=== PATIENT | male | born 1975 | race Caucasian/White ===

== ENCOUNTER 2022-12-05 14:16 | Inpatient (IN) | payer MEDICAID ==
[~2022-12-05] VITALS: Ht 170.2 cm; Wt 77.0 kg
[2022-12-05] VITALS (16 sets, daily range): BP systolic 121–150; BP diastolic 73–107
--- NOTE | 2022-12-05 14:47 | NUR ---
PT AMBULATES TO RM 2 FOR EVAL, NO ACUTE DISTRESS. MD AWARE AND VS STABLE.
[2022-12-05 15:17] LABS: BASO% 0.3 % (0-3); HEMATOCRIT 48.5 % (39.0-50.0); HEMOGLOBIN 16.4 g/dl (14.0-18.0); IMMATURE GRANULOCYTES 0.2 % (0.0-5.0); MEAN CELL VOLUME 100.6 fL CALC (80.0-100.0); MEAN CORPUSCULAR HGB CONC 33.8 g/dL CAL (32.0-36.0); MONO% 5.8 % (2-13); NEUT# 9.42 thou/uL (1.82-7.42); NEUT% 85.7 % (42-76); RED BLOOD COUNT 4.82 mill/uL (4.70-6.10)
[2022-12-05 15:27] LABS: ALBUMIN 4.9 g/dL (3.2-5.0); ALKALINE PHOSPHATASE 74 u/l (38-126); ANION GAP 12 (6-22 (CALC)); BUN 16 mg/dL (9-20); BUN/CREATININE RATIO 17 (12-20 (CALC)); CARBON DIOXIDE 24 mmol/l (22-30); CHLORIDE 107 mmol/l (95-108); CREATININE 0.9 mg/dL (0.7-1.3); GFR FOR AFR.AMER. > 60 ML/MIN (>=60 (CALC)); GFR OTHER RACES > 60 ML/MIN (>=60 (CALC)); LIPASE 23 u/l (23-300); POTASSIUM 3.8 mmol/l (3.5-5.1); SGOT/AST 48 u/l (17-59); SODIUM 139 mmol/l (137-146); TOTAL PROTEIN 8.5 g/dL (6.3-8.2)
--- NOTE | 2022-12-05 15:29 | NUR ---
IV ACCESS OBTAINED. PATIENT MEDICATED.
--- NOTE | 2022-12-05 16:14 | NUR ---
PATIENT MEDICATED WITH MORPHINE AFTER RETURN FROM RADIOLOGY.
--- NOTE | 2022-12-05 17:47 | NUR ---
DR. GALVEZ AT THE BEDSIDE TO DISCUSS THE PLAN OF CARE. PATIENT TO BE ADMITTED FOR SURGICAL SERVICES.
--- NOTE | 2022-12-05 17:47 | NUR ---
BLOOD CUTURES OBTAINED.
--- NOTE | 2022-12-05 17:54 | NUR ---
IV ABT'S (ZOSYN) GIVEN AT THIS TIME. PATIENT MEDICATED WITH MORPHINE 4 MG PRIOR TO NASAL GASTRIC TUBE INSERTION.
[2022-12-05 18:01] LABS: URINE BILIRUBIN - DIPSTICK NEGATIVE (NEGATIVE); URINE BLOOD DIPSTICK NEGATIVE (NEGATIVE); URINE COLOR YELLOW; URINE GLUCOSE - DIPSTICK NEGATIVE (NEGATIVE); URINE KETONE NEGATIVE (NEGATIVE); URINE LEUK ESTERASE NEGATIVE (NEGATIVE); URINE NITRITE - DIPSTICK NEGATIVE (Negative); URINE PROTEIN - DIPSTICK NEGATIVE (NEG-TRACE); URINE UROBILINOGEN - DIPSTICK 0.2 E.U./dL (0.2)
--- NOTE | 2022-12-05 18:28 | NUR ---
NASAL GASTRIC TUBE ADVANCED. GASTRIC CONTENT PRESENT.. VERIFIED PLACEMENT BY ASCULTATION. CHEST XRAY ORDERED SECIND CONFERMATION OF NG TUBE PLACEMENT. PATIENT DID EXTREMLY WELL.
--- NOTE | 2022-12-05 18:54 | NUR ---
VERBAL REPORT GIVEN TO RECIEVING NURSE ON MED SURGE/TELEMETRY. PORTABLE XRAY FOR CHEST TUBE PLACEMENT COMPLETED.PATIENT TAKEN TO THE FLOOR.
[2022-12-06] VITALS (7 sets, daily range): BP systolic 106–147; BP diastolic 67–94
--- NOTE | 2022-12-06 | NUR ---
RECEIVED REPORT FROM ED NURSE, PATIENT ARRIVED TO FLOOR AT 1916, PATIENT TRANSPORTED BY WHEELCHAIR, PATIENT IS AMBULATORY, NGT TUBE ON RT NARE HOOKED TO LOW INTERMITTENT SUCTION, IV SITE ON LAC G 20 PATENT FLUSHES WELL CONNECTED TO NS @ 100CC/HR, PATEINT ON TELEMETRY, ACTIVE BOWEL SOUNDS LBM 12/05, PATEINT KEPT ON NPO. ADMISSION ASSESSMENT COMPLETED, CALL LIGHT WITHIN REACH.
--- NOTE | 2022-12-06 04:03 | NUR ---
PATIENT RESTING IN BED, STILL ABDOMINAL PAIN MEDICATED EARLIER DILAUDID, PATIENT NPO AT THIS TIME, NGT ON LIS DRAINING DARK RED FLUID, CALL LIGHT IN REACH.
[2022-12-06 05:04] LABS: MEAN CELL VOLUME 101.9 fL CALC (80.0-100.0); MEAN CORPUSCULAR HGB 34.9 pG CALC (26.0-32.0); MEAN CORPUSCULAR HGB CONC 34.3 g/dL CAL (32.0-36.0); RED BLOOD COUNT 3.75 mill/uL (4.70-6.10)
[2022-12-06 05:14] LABS: HEMATOCRIT 38.2 % (39.0-50.0); HEMOGLOBIN 13.1 g/dl (14.0-18.0)
[2022-12-06 05:21] LABS: ALKALINE PHOSPHATASE 40 u/l (38-126); ANION GAP 8 (6-22 (CALC)); BUN 17 mg/dL (9-20); BUN/CREATININE RATIO 17 (12-20 (CALC)); CARBON DIOXIDE 25 mmol/l (22-30); CHLORIDE 109 mmol/l (95-108); GFR FOR AFR.AMER. > 60 ML/MIN (>=60 (CALC)); GFR OTHER RACES > 60 ML/MIN (>=60 (CALC)); MAGNESIUM 1.3 mg/dL (1.6-2.3); POTASSIUM 3.9 mmol/l (3.5-5.1); SGOT/AST 28 u/l (17-59); SODIUM 138 mmol/l (137-146)
[2022-12-06 05:30] LABS: ALBUMIN 3.4 g/dL (3.2-5.0); BILIRUBIN, TOTAL 0.5 mg/dL (0.2-1.3); TOTAL PROTEIN 5.6 g/dL (6.3-8.2)
--- NOTE | 2022-12-06 07:40 | NUR ---
PT RESTING IN BED. VOICED PAIN IN ABD AREA X4 QUADRANTS ASSESSMENT COMPLETED. REPOSTIONED/ ASSISTED TO BATHROOM. PT HAD DARK BROWN LOOSE/WATERY STOOL. OUTPUT FROM NG TUBE THIS MORNING 750CC. NG TUBE IN PLACE. TELE MONITOR IN PLACE. CONINTOUS MONITORING PER ED. FALL/SAFTEY PRECAUTION IN PLACE. CALL LIGHT WITHIN REACH.
--- NOTE | 2022-12-06 12:00 | NUR ---
PT RESTING IN BED WITH NG TUBE IN PLACE @ LOW INTERMIT SUCTION. PT STATES NO NEEDS AT THIS TIME. FALL/SAFTEY PRECAUTION IN PLACE. CALL LIGHT WITHIN REACH
--- NOTE | 2022-12-06 16:20 | NUR ---
PT TO CT VIA WC WITH SUPERVISOR PROP MAKING.
--- NOTE | 2022-12-06 17:42 | NUR ---
SPOKE WITH DR. VILLALTA, ORDERS RECEIVED FOR EXPLORATORY LAPAROTOMY. COST CLERK OR TEAM CALL IN INITIATED.
--- NOTE | 2022-12-06 17:42 | NUR ---
PT BACK FROM CT. BREATHING EVEN AND UNLABORED. STATES NO NEEDS AT THIS TIME. FALL/SAFTEY PRECAUTION IN PLACE. CALL LIGHT WITHIN REACH
--- NOTE | 2022-12-06 19:10 | NUR ---
RECEIVED REPORT FROM DAYSHIFT NURSE. PT IS LYING IN BED ON THE PHONE. PT AWARE OF OR COMING SOON. PT IS SCHEDULED FOR SURGEY AT 1930. PT ADVISED AND ACKNOWLEGED OF CHANGE OF NURSE FOR THE NIGHT. PT HAS NO COMPLAINTS OF PAIN AT THIS TIME. CALL LIGHT WITHIN REACH AND SAFTEY PRECAUTIONS IN PLACE.
--- NOTE | 2022-12-06 19:25 | NUR ---
OR STAFF TO BEDSIDE. PATIENT TRANSPORTED TO OR VIA STRETCHER.
--- NOTE | 2022-12-06 23:20 | NUR ---
Patient arrived via stretcher accompanied by OR staff. Patient alert and oriented, awake at this time. NG tube in place to R nare, clamped at this time, O2 at 3L. Dressing to abdomen CDI, Emil drain noted to have scant serosanguineous drainage. Patient able to transfer himself off stretcher into bed. Hall draining clear yellow urine to gravity, leg strap in place. Patient reoriented to room and call light system. Call light and bedside table within reach.
[2022-12-07] VITALS (10 sets, daily range): BP systolic 89–132; BP diastolic 62–93
--- NOTE | 2022-12-07 04:10 | NUR ---
PT IN BED SLEEPING AFTER SURGERY. PT SHOWS NO VISABLE SIGNS OF PAIN OR DISTRESS AT THE MOMENT. CALL LIGHT WITHIN REACH AND SAFETY PRECAUTIONS IN PLACE.
[2022-12-07 05:13] LABS: BASO% 0.3 % (0-3); EOS% 0.4 % (0-8); HEMATOCRIT 37.9 % (39.0-50.0); HEMOGLOBIN 12.7 g/dl (14.0-18.0); IMMATURE GRANULOCYTES 0.1 % (0.0-5.0); LYMPH% 11.3 % (15-41); MEAN CELL VOLUME 104.7 fL CALC (80.0-100.0); MEAN CORPUSCULAR HGB 35.1 pG CALC (26.0-32.0); MEAN CORPUSCULAR HGB CONC 33.5 g/dL CAL (32.0-36.0); MONO% 1.8 % (2-13); NEUT# 6.22 thou/uL (1.82-7.42); NEUT% 86.1 % (42-76); RED BLOOD COUNT 3.62 mill/uL (4.70-6.10); RED CELL DISTRI WIDTH 13.6 % (11.5-15.5)
[2022-12-07 05:36] LABS: ALBUMIN 2.9 g/dL (3.2-5.0); ALKALINE PHOSPHATASE 57 u/l (38-126); ANION GAP 8 (6-22 (CALC)); BILIRUBIN, TOTAL 0.3 mg/dL (0.2-1.3); BUN 24 mg/dL (9-20); BUN/CREATININE RATIO 20 (12-20 (CALC)); CARBON DIOXIDE 25 mmol/l (22-30); CHLORIDE 108 mmol/l (95-108); CREATININE 1.2 mg/dL (0.7-1.3); GFR FOR AFR.AMER. > 60 ML/MIN (>=60 (CALC)); GFR OTHER RACES > 60 ML/MIN (>=60 (CALC)); POTASSIUM 3.5 mmol/l (3.5-5.1); SGOT/AST 40 u/l (17-59); SODIUM 138 mmol/l (137-146); TOTAL PROTEIN 5.4 g/dL (6.3-8.2)
[2022-12-07 05:39] LABS: MAGNESIUM 2.7 mg/dL (1.6-2.3)
--- NOTE | 2022-12-07 08:12 | NUR ---
PT RESTING IN BED WITH NG TUBE IN PLACE. ASSESSMENT COMPLETE. PT EXPRESSESS FRUSTRATION/ANXIETY TOWARDS COLOSTOMY. CALMING VERBAL CUES GIVEN. TELE MONITOR IN PLACE, CONTINOUS MONITORING PER ED. [facility]. PT INIDCATED UNDERSTANDING. LEIGH IN PLACE, DRAINING URINE VIA GRAVITY. FALL/SAFTEY PRECAUTION IN PLACE. CALL LIGHT WITHIN REACH
--- NOTE | 2022-12-07 10:30 | NUR ---
LEIGH REOMVED. PT TOLERATED WELL. FALL/SAFTEY PRECAUTION IN PLACE. CALL LIGHT WITHIN REACH
--- NOTE | 2022-12-07 12:00 | NUR ---
PT DRESSING CHANGED/ OSTOMY TO THE LEFT ABD INTACT, CLEANED. PT TOLERATED WELL. EDUCATED PT ON COLOSTOMY CARE. PT INDICATED UNDERSTANDING. FALL/SAFTEY PRECAUTIO BERNARD PLACE. CALL LIGHT WITHIN REACH.
--- NOTE | 2022-12-07 16:00 | NUR ---
PT AMBULATING WITH ACTION NURSE TECH. PT ABLE TO AMBULAET VIA STANDY BY ASSIST. FALL/SAFTEY PRECAUTIONS IN PLACE.
--- NOTE | 2022-12-07 19:20 | NUR ---
Report received from Marco Garcia Rn.
--- NOTE | 2022-12-07 20:10 | NUR ---
PATIENT WALKING HALLWAYS, STATES HE HAS PAIN WHEN HE GETS OUT OF BED, BUT OTHERSWISE THE PAIN IS OKAY. PATIENT OBSERVED WALKING DOWN THE HALLWAYS, WAYNE FARR NOTED, GRIPPED SOCKS ON PATIENT.
--- NOTE | 2022-12-07 23:51 | NUR ---
ANTIBIOTIC AND TORADOL GIVEN AT THIS TIME. JACQUELINE DRAIN EMPTIED 20ML, DRESSING REMAINS CDI.
[2022-12-08] VITALS (7 sets, daily range): BP systolic 130–151; BP diastolic 77–93
--- NOTE | 2022-12-08 03:00 | NUR ---
PATIENT AMBULATED DOWN HALLWAYS, STEADY GAIT NOTED. GRIPPED SOCKS ON.
[2022-12-08 03:39] LABS: BASO% 0.3 % (0-3); EOS% 3.5 % (0-8); HEMATOCRIT 33.8 % (39.0-50.0); HEMOGLOBIN 11.1 g/dl (14.0-18.0); IMMATURE GRANULOCYTES 0.4 % (0.0-5.0); LYMPH% 9.4 % (15-41); MEAN CORPUSCULAR HGB 34.8 pG CALC (26.0-32.0); MEAN CORPUSCULAR HGB CONC 32.8 g/dL CAL (32.0-36.0); MONO% 1.8 % (2-13); NEUT# 8.01 thou/uL (1.82-7.42); NEUT% 84.6 % (42-76); RED BLOOD COUNT 3.19 mill/uL (4.70-6.10); RED CELL DISTRI WIDTH 13.6 % (11.5-15.5)
[2022-12-08 03:59] LABS: ALBUMIN 2.9 g/dL (3.2-5.0); ALKALINE PHOSPHATASE 56 u/l (38-126); ANION GAP 10 (6-22 (CALC)); BILIRUBIN, TOTAL 0.3 mg/dL (0.2-1.3); BUN 20 mg/dL (9-20); BUN/CREATININE RATIO 18 (12-20 (CALC)); CARBON DIOXIDE 21 mmol/l (22-30); CHLORIDE 112 mmol/l (95-108); CREATININE 1.1 mg/dL (0.7-1.3); GFR FOR AFR.AMER. > 60 ML/MIN (>=60 (CALC)); GFR OTHER RACES > 60 ML/MIN (>=60 (CALC)); POTASSIUM 3.5 mmol/l (3.5-5.1); SGOT/AST 32 u/l (17-59); SODIUM 140 mmol/l (137-146); TOTAL PROTEIN 5.4 g/dL (6.3-8.2)
--- NOTE | 2022-12-08 04:00 | NUR ---
ANTIBIOTIC AND TORADOL GIVEN AT THIS TIME. JACQUELINE DRAIN EMPTIED 20ML, DRESSING REMAINS CDI.
--- NOTE | 2022-12-08 07:00 | NUR ---
BEDSIDE SHIFT REPORT, PT AMBULATING IN HALLWAYS THEN SETTLED BACK IN ROOM ASKED, C/O ABD PAIN @ 5/10, IVF INFUSING, TELE MONITOR IN PLACE. JACQUELINE DRAIN IN PLACE TO ABD WITH PINK DRAINAGE, COLOSTOMY IN PLACE TO RIGHT ABD WITH GREEN LIQUID DRAINAGE. CALL REDD IN REACH AND BED LOCKED IN LOWEST POSITION.
--- NOTE | 2022-12-08 10:48 | NUR ---
STOMA DRESSING CHANGED AT THIS TIME, WAFER SOILED WITH LIQUID OUTPUT, WAFER REMOVED AND AREA AROUND STOMA CLEANED, SLIN PREPPED AND NEW WAFER REPLACED, DRESSING TO INCISION ALSO REPLACED, NO DRAINAGE ON OLD DRESSING AT THIS TIME.
--- NOTE | 2022-12-08 12:34 | NUR ---
PT C/O OF BLOATING AT THIS TIME, HAS BEEN DRINKING EXCESSIVE QUANTITIES H2O AND JUICES, ADVISED TO AMBULATE AND DECREASE ORAL FLUID INTAKE AT THIS TIME, WILL CONTINUE TO MONITOR.
--- NOTE | 2022-12-08 14:00 | NUR ---
PT REPORTED PASSING WET FLATULENCE, DR VILLALTA NOTIFIED AND REPLIED NO NEED FOR CONCERN, NORMAL.
--- NOTE | 2022-12-08 17:51 | NUR ---
PT C/O SOB AT THIS TIME, AUDIBLE WHEEZING HEARD BOTH WITH AND WITHOUT STHESCOPE, SOB ON EXERTION, URINE OUTPUT INADEQUATE IN COMPARISON TO ORAL LIQUID INTAKE, MD TO BE NOTIFIED.
--- NOTE | 2022-12-08 18:07 | NUR ---
DR NEGRETE NOTIFIED OF CONDITION AND GAVE ORDERS, NURSE WILL EXECUTE STAT.
--- NOTE | 2022-12-08 19:15 | NUR ---
PT REPORTS HE FEELS MUCH BETTER AFTER RECEIVING DIURETIC, IMPROVED BREATHING OBSERVED, URINE OUTPUT IMPROVED. NIGHT NSTAFF WILL CONTINUE TO MONITOR.
--- NOTE | 2022-12-08 19:16 | NUR ---
REPORT RECEIVED FROM Monet PERLA RN
--- NOTE | 2022-12-08 19:48 | NUR ---
CRX ORDER CHANGED FROM ROUTINE TO STAT.
--- NOTE | 2022-12-08 20:31 | NUR ---
PT DOWN TO X RAY
--- NOTE | 2022-12-09 00:12 | NUR ---
ANTIBIOTIC HUNG AT THIS TIME. PATIENT MEDICATED WITH DILAUDID FOR PAIN 01/31.
[2022-12-09 03:36] VITALS: BP 134/81
--- NOTE | 2022-12-09 04:00 | NUR ---
PATIENT RESTING, NO APPARENT DISTRESS NOTED. RESPIRATIONS EVEN AND UNLABORED. RISE AND FALL OF CHEST NOTED. CALL LIGHT AND BEDSIDE TABLE WITHIN REACH.
[2022-12-09 05:53] LABS: BASO% 0.2 % (0-3); EOS% 3.5 % (0-8); HEMATOCRIT 31.7 % (39.0-50.0); HEMOGLOBIN 10.5 g/dl (14.0-18.0); IMMATURE GRANULOCYTES 0.3 % (0.0-5.0); MEAN CORPUSCULAR HGB 34.8 pG CALC (26.0-32.0); MEAN CORPUSCULAR HGB CONC 33.1 g/dL CAL (32.0-36.0); MONO% 4.9 % (2-13); NEUT# 6.97 thou/uL (1.82-7.42); NEUT% 77.1 % (42-76); RED BLOOD COUNT 3.02 mill/uL (4.70-6.10); RED CELL DISTRI WIDTH 13.3 % (11.5-15.5)
[2022-12-09 06:12] LABS: ALBUMIN 2.9 g/dL (3.2-5.0); ALKALINE PHOSPHATASE 70 u/l (38-126); ANION GAP 8 (6-22 (CALC)); BILIRUBIN, TOTAL 0.3 mg/dL (0.2-1.3); BUN 15 mg/dL (9-20); BUN/CREATININE RATIO 14 (12-20 (CALC)); CHLORIDE 108 mmol/l (95-108); GFR FOR AFR.AMER. > 60 ML/MIN (>=60 (CALC)); GFR OTHER RACES > 60 ML/MIN (>=60 (CALC)); POTASSIUM 3.3 mmol/l (3.5-5.1); SGOT/AST 32 u/l (17-59); SODIUM 139 mmol/l (137-146); TOTAL PROTEIN 5.5 g/dL (6.3-8.2)
[2022-12-09 06:13] LABS: CARBON DIOXIDE 26 mmol/l (22-30)
[2022-12-09 06:38] VITALS: BP 148/84
--- NOTE | 2022-12-09 07:32 | NUR ---
SHIFT CHANGE REPORT, PT AWAKE ALERT AND ORIENTED RESTING IN BED, C/O ABD PAIN @ 6/10, CONCERN ADDRESSED, ENCOURAGED TO USE INCENTIVE SPIROMETER AND TAKE MORE DEEP BREATHS WITH NORMAL BREATHING. COLOSTOMY BAG IN PLACE, JACQUELINE DRAIN IN PLACE TO ABD WITH SMALL AMT SEROSANGUINOUS DRAINAGE. DRAINAGE FROM COLOSTOMY IS GREEN. CALL REDD IN REACH AND BEDLOCKED IN LOWEST PSITION.
[2022-12-09 10:30] VITALS: BP 163/82
--- NOTE | 2022-12-09 10:41 | NUR ---
PT HAS BEEN AMBULATING HALLWAYS FREQUENTLY, PAIN ADDRESSED, WILL CONTINUE TO MONITOR.
--- NOTE | 2022-12-09 11:30 | NUR ---
TELE STONE AND PLATE PREPARER APPRENTICE REPORTED BEATS OF PVC FOR 10 SECS, ON ASSESSMENT PT HAD JUST SAT DOWN FROM AMBULATING THE ORDOÑEZ WAYS, DENIED SYMPTOMS, CHECKED BACK WITH STONE AND PLATE PREPARER APPRENTICE WHO REPORTED RHYTHM WAS BACK TO NORMAL, WILL CONTINUE TO MONITOR.
[2022-12-09] MEDS ORDERED: LEVAQUIN750 M1 PO (11:37)
[2022-12-09] MEDS ORDERED: LORTAB5 PO (11:38)
--- NOTE | 2022-12-09 14:00 | NUR ---
JACQUELINE DRAIN RMOVED PER ORDER, PT DID NOT TOLERATE WELL AND C/O SEVERE PAIN DURING PROCEDURE BUT GRADUALLY HAD RELIEF TIME PASSED.
--- NOTE | 2022-12-09 14:27 | NUR ---
Discharge instructions given. Patient verbalizes understanding of same. Discharged in stable condition via Wheelchair to Home with family. All belongings sent with pt.
== END 2022-12-09 14:24 | disposition home or self-care (01) | DRG 331 ==
LOC: ED 14:16 → ED-I 17:29 → ED 17:45 → MS2 17:46
PROVIDERS: Family Medicine; Nurse Practitioner Family; ADMIT Internal Medicine; ATTEND Internal Medicine
PROC: 0DTN0ZZ Resection of Sigmoid Colon, Open Approach (ICD-10-PCS; principal; 2022-12-06)
PROC: 0D1M0Z4 Bypass Descending Colon to Cutaneous, Open Approach (ICD-10-PCS; 2022-12-06)
PROC: 0DTJ0ZZ Resection of Appendix, Open Approach (ICD-10-PCS; 2022-12-06)
DX: K57.20 Diverticulitis of large intestine with perforation and abscess without bleeding (principal); K37 Unspecified appendicitis; F17.200 Nicotine dependence, unspecified, uncomplicated; Z20.822 Contact with and (suspected) exposure to COVID-19
CPT/HCPCS: J0131; J1650; J3475; Q9967; S0164